=== PATIENT | female | born 1975 | race Caucasian/White ===

== ENCOUNTER 2020-10-25 08:58 | Emergency (ER) | payer BC ==
[2020-10-25] MEDS ORDERED: LORazepam 1 MG Tab PO ONE (09:03)
--- NOTE | 2020-10-25 09:09 | EDM.PDOC ---
ED HPI GENERAL MEDICAL PROBLEM - General Chief Complaint: Behavioral/Psych Stated Complaint: EMOTIONAL DISTRESS Time Seen by Provider: 10/25/20 09:00 Source of Information: Reports: Patient History Limitations: Reports: No Limitations - History of Present Illness INITIAL COMMENTS - FREE TEXT/NARRATIVE: Patient is a 44-year-old female who presents today for anxiety. Patient states that yesterday she accidentally went over her cat and since that time she has been feeling distraught over. Patient states she has been feeling anxious and sad since she killed the cat that she is very close to. Patient denies any chest pain fever chills nausea vomiting. Patient she is has this feeling this feeling severely sad and depressed and anxious. Patient denies any thoughts of wanting harm her self or anyone else or any voices. Patient states she regularly sees a therapist and scheduled see therapist tomorrow. Patient that she is talking to her mom today about how sad she was injured about accident and her mom called 911 to bring her here. - Related Data Allergies Allergy/AdvReac Type Severity Reaction Status Date / Time amoxicillin [From Augmentin] AdvReac Stomach Verified 10/25/20 09:01 Upset clavulanic acid AdvReac Stomach Verified 10/25/20 09:01 [From Augmentin] Upset Home Meds: Home Meds Albuterol [Ventolin HFA] 1 puff INH ASDIRECTED 10/25/20 [History] Escitalopram [Lexapro] 20 mg PO DAILY 10/25/20 [History] Metoprolol Tartrate 25 mg PO DAILY 10/25/20 [History] hydroCHLOROthiazide [Hydrochlorothiazide] 12.5 mg PO DAILY 10/25/20 [History] metFORMIN [Glucophage] 500 mg PO DAILY 10/25/20 [History] Past Medical History HEENT History: Reports: Other (See Below) Other HEENT History: rhinoplasty Cardiovascular History: Reports: Hypertension Respiratory History: Reports: Asthma, Sleep Apnea, Other (See Below) Other Respiratory History: airway disease Gastrointestinal History: Reports: Other (See Below) Other Gastrointestinal History: constipation Genitourinary History: Reports: None [employer] History: Reports: None Neurological History: Reports: None Psychiatric History: Reports: Anxiety, Depression, Other (See Below) Other Psychiatric History: sleep disturbances, fatigue Endocrine/Metabolic History: Reports: Obesity/BMI 30+ Hematologic History: Reports: None Immunologic History: Reports: None Oncologic (Cancer) History: Reports: None Dermatologic History: Reports: None - Infectious Disease History Infectious Disease History: Reports: None - Past Surgical History Head Surgeries/Procedures: Reports: None HEENT Surgical History: Reports: Adenoidectomy, LASIK, Other (See Below) Other HEENT Surgeries/Procedures: turbinate reduction, septoplasty, sinus surgery Cardiovascular Surgical History: Reports: None Respiratory Surgical History: Reports: None GI Surgical History: Reports: None Female Surgical History: Reports: None Male Surgical History: Reports: None Endocrine Surgical History: Reports: None Neurological Surgical History: Reports: None Musculoskeletal Surgical History: Reports: None Oncologic Surgical History: Reports: None Dermatological Surgical History: Reports: None Social & Family History - Family History Family Medical History: No Pertinent Family History - Caffeine Use Caffeine Use: Reports: None, Soda ED ROS GENERAL - Review of Systems Review Of Systems: See Below Constitutional: Reports: No Symptoms HEENT: Reports: No Symptoms Respiratory: Reports: No Symptoms Cardiovascular: Reports: No Symptoms Endocrine: Reports: No Symptoms GI/Abdominal: Reports: No Symptoms : Reports: No Symptoms Musculoskeletal: Reports: No Symptoms Skin: Reports: No Symptoms Neurological: Reports: No Symptoms Psychiatric: Reports: Anxiety, Depression Hematologic/Lymphatic: Reports: No Symptoms Immunologic: Reports: No Symptoms ED EXAM, GENERAL - Physical Exam Exam: See Below Exam Limited By: No Limitations General Appearance: Alert, WD/WN, No Apparent Distress Eye Exam: Bilateral Eye: EOMI, PERRL Respiratory/Chest: No Respiratory Distress, Lungs Clear, Normal Breath Sounds Cardiovascular: Normal Peripheral Pulses, Regular Rate, Rhythm GI/Abdominal: Normal Bowel Sounds, Soft, Non-Tender Neurological: Alert, Oriented, CN II-XII Intact Course - Vital Signs Last Recorded V/S: Last Vital Signs Temp 98.2 F 10/25/20 09:04 Pulse 92 10/25/20 09:04 Resp 24 H 10/25/20 09:04 BP 144/90 H 10/25/20 09:04 Pulse Ox 98 10/25/20 09:04 - Orders/Labs/Meds Meds: Medications Discontinued Medications Generic Name Dose Route Start Last Admin Trade Name Freq PRN Reason Stop Dose Admin Lorazepam 1 mg 10/25/20 09:03 10/25/20 09:15 Lorazepam 1 Mg Tab PO 10/25/20 09:04 1 mg ONETIME ONE Administration - Re-Assessments/Exams Free Text/Narrative Re-Assessment/Exam: 10/25/20 09:32 Patient's mother is at the bedside with patient. Patient states that she does not want to be alone and is get really nervous this morning when she woke up and realized her cat was no longer there and sent her into the shock of panic. Patient is more calm now and will be discharged to follow-up in outpatient unit. Departure - Departure Time of Disposition: :30 Disposition: Home, Self-Care 01 Condition: Good Clinical Impression: History of traumatic life event - Discharge Information *PRESCRIPTION DRUG MONITORING PROGRAM REVIEWED*: Not Applicable *COPY OF PRESCRIPTION DRUG MONITORING REPORT IN PATIENT GT: Not Applicable Instructions: Managing Anxiety, Adult Referrals: [facility] [Outside] PCP,Not In Area [Primary Care Provider] - Forms: ED Department Discharge Additional Instructions: The following information is given to patients seen in the emergency department who are being discharged to home. This information is to outline your options for follow-up care. We provide all patients seen in our emergency department with a follow-up referral. The need for follow-up, as well as the timing and circumstances, are variable depending upon the specifics of your emergency department visit. If you don't have a primary care physician on staff, we will provide you with a referral. We always advise you to contact your personal physician following an emergency department visit to inform them of the circumstance of the visit and for follow-up with them and/or the need for any referrals to a consulting specialist. The emergency department will also refer you to a specialist when appropriate. This referral assures that you have the opportunity for follow-up care with a specialist. All of these measure are taken in an effort to provide you with optimal care, which includes your follow-up. Under all circumstances we always encourage you to contact your private p hysician who remains a resource for coordinating your care. When calling for follow-up care, please make the office aware that this follow-up is from your recent emergency room visit. If for any reason you are refused follow-up, please contact the [facility] Emergency Department at and asked to speak to the emergency department charge nurse. Please follow up with your primary care physician. If you do not have a primary care physician, see below: [facility] [address] [place] [address] My [facility] [address] [place] [address] You were seen today for feeling very anxious. You denied having any medical complaints. We gave you some medicine help you calm down and we will send you to our walk-in therapist for further evaluation. You also have appointment tomorrow with your therapist that we recommend you continue to keep and possibly see more frequently to assist you with your loss. If you go home have any thoughts of wanting to harm yourself or anyone else or hearing voices please return to the ED. Sepsis Event Note (ED) - Focused Exam Vital Signs: Vital Signs Temp Pulse Resp BP Pulse Ox 10/25/20 09:04 98.2 F 92 24 H 144/90 H 98 - Assessment/Plan Plan: Patient is a 44-year-old female presents today for anxiety and depression. Patient denies any thoughts of wanting harm her self or others. Patient accidentally went over her care yesterday and says that has been feeling sad. Patient scheduled see a therapist tomorrow. Will give patient some Ativan to calm her down today and sent her to [facility] for evaluation.
== END 2020-10-25 09:40 | disposition home or self-care (01) ==
LOC: MW.ED 08:58
DX: F41.9 Anxiety disorder, unspecified (principal); Z91.49 Other personal history of psychological trauma, not elsewhere classified
CPT/HCPCS: 99283; A9270

== ENCOUNTER 2021-12-07 15:43 | Emergency (ER) | payer BC | END 2021-12-07 17:53 | disposition home or self-care (01) | LOC: MW.ED 15:43 | DX: S16.1XXA Strain of muscle, fascia and tendon at neck level, initial encounter (principal); S09.90XA Unspecified injury of head, initial encounter; I10 Essential (primary) hypertension; E66.9 Obesity, unspecified; Z68.36 Body mass index [BMI] 36.0-36.9, adult; Z88.0 Allergy status to penicillin; W18.30XA Fall on same level, unspecified, initial encounter | CPT/HCPCS: 70450; 70450-26; 72125; 72125-26; 99284 ==